=== PATIENT | female | born 1970 | race Hispanic/Latino ===

== ENCOUNTER 2023-11-11 19:27 | Emergency (ER) | payer OTHER ==
[~2023-11-11] VITALS: Ht 160 cm; Wt 88.5 kg
[2023-11-11] MEDS: KETOROLAC TROMETHAMINE 60 MG/2 ML VIAL IM ONE (20:12)
[2023-11-11 20:42] VITALS: PULSE 97; RESP 16; TEMP 98.7; O2SAT 95
== END 2023-11-11 20:58 | disposition home or self-care (01) ==
LOC: FSED 19:33
DX: S00.83XA Contusion of other part of head, initial encounter (principal); R51.9 Headache, unspecified; W20.8XXA Other cause of strike by thrown, projected or falling object, initial encounter; Y92.89 Other specified places as the place of occurrence of the external cause; I10 Essential (primary) hypertension; F17.210 Nicotine dependence, cigarettes, uncomplicated
CPT/HCPCS: 70450; 99283; J1885